=== PATIENT | female | born 1945 | race Caucasian/White ===

== ENCOUNTER 2018-08-05 07:51 | Outpatient (CLI) | payer BC, MEDICARE | END 2018-08-05 07:52 | disposition home or self-care (01) | LOC: BICMAMMO 07:51 | PROVIDERS: ATTEND Internal Medicine | DX: Z12.31 Encounter for screening mammogram for malignant neoplasm of breast (principal); R05 Cough; F17.200 Nicotine dependence, unspecified, uncomplicated; R91.8 Other nonspecific abnormal finding of lung field | CPT/HCPCS: 71046; 77063; 77067 ==